=== PATIENT | female | born 1990 | race African-American/Black ===

== ENCOUNTER 2016-06-03 09:46 | Outpatient (CLI) | payer MEDICAID ==
[~2016-06-03] VITALS: Ht 162.6 cm; Wt 105.5 kg
[~2016-06-03 09:46] MED LIST: ADVAIR IH; ALBUTEROL SULFAT3 M3 IH; ALBUTEROL0.83 MG/ML IH; ATROVENT I0.2 MG/1 M IH; BACTRIM DS 8001 TAB PO; BIAXIN 500MG T500 MG PO; CEPHALEXIN250 M1 PO; CLEOCIN HCL300 MG PO; IBUPROFEN800 M1 PO; LORTAB 5/500 501 TAB PO; MOTRIN 600600 MG/TAB PO; NORCO 325 MG-51 TAB PO; PERCOCET 325 MG1 TA2 PO; PREDNISONE10 MG; PREDNISONE10 MG PO; PREDNISONE20 MG PO; PROAIR HFA0.09 MG/AC IH; PROVENTIL0.09 MG/A1 IH; PULMICORT R1 MG/2 ML IH; PULMICORT180 MCG/Ac IH; RT ADVAIR 228 DISKUS; RT ALBUTER2.5 MG/0.5 IH; SINGULAIR 110 MG/TAB; SINGULAIR 110 MG/TAB PO; SINGULAIR10 MG PO; THEO-DUR 2200 MG/TAB PO; TYLENOL 325MG325 MG PO; VENTOLIN0.09 MG IH; ZITHROMAX 250M250 MG PO; ZYRTEC 10MG10 MG PO
[2016-06-03 09:53] VITALS: BP 128/72; PULSE 91; TEMP 98.5
[2016-06-03] MEDS ORDERED: SINGULAIR 110 MG/TAB (10:14)
[2016-06-03 10:45] VITALS: BP 117/74; PULSE 82
== END 2016-06-03 10:57 | disposition home or self-care (01) ==
LOC: LDRO 09:46
DX: O32.1XX0 Maternal care for breech presentation, not applicable or unspecified (principal); Z3A.37 37 weeks gestation of pregnancy; Z87.891 Personal history of nicotine dependence

== ENCOUNTER 2016-06-29 18:52 | Inpatient (IN) | payer MEDICAID ==
[~2016-06-29] VITALS: Ht 162.6 cm; Wt 105.9 kg
[2016-06-30] VITALS (50 sets, daily range): BP systolic 106–141; BP diastolic 44–87; PULSE 63–102; TEMP 97.9–98.7
[2016-06-30 07:52] LABS: BASO % 0.4 % (0.0-2.0); EOS # 0.1 (0.0-0.7); EOS % 1.3 % (0-4.0); GRAN # 3.2 (1.4-6.5); GRAN % 57.3 % (42.2-75.2); LYMPH # 1.8 (1.2-3.4); MEAN CELL VOLUME 74 fl (80.0-100.0); MEAN CORPUSCULAR HGB CONC 34 g/dl (33.0-37.0); MEAN PLATELET VOLUME 10.8 fl (7.4-10.4); MONO # 0.4 (0.1-0.6); MONO % 7.8 % (1.7-9.3); PLATELET COUNT 228 K/mm3 (130-400); RED BLOOD COUNT 4.43 M/mm3 (4.10-5.30); REDCELL DISTRIBUTION WIDTH-CV 14.1 % (11.5-14.5); WHITE BLOOD COUNT 5.5 K/mm3 (4.8-10.8)
[2016-06-30 07:53] LABS: HEMATOCRIT 32.8 % (37.0-47.0); HEMOGLOBIN 11.1 g/dl (12.5-16.0); MEAN CORPUSCULAR HEMOGLOBIN 25 pg (27.0-31.0)
[2016-06-30] MEDS ORDERED: SINGULAIR 110 MG/TAB PO (08:17)
[2016-06-30] MEDS ORDERED: ZYRTEC 10MG10 MG PO (08:18)
[2016-07-01 02:00] VITALS: BP 124/73; PULSE 81; TEMP 98.7
[2016-07-01] MEDS ORDERED: IBU600 MG PO (07:38)
[2016-07-01 07:40] LABS: HEMATOCRIT 31.8 % (37.0-47.0); HEMOGLOBIN 10.6 g/dl (12.5-16.0)
[2016-07-01] MEDS ORDERED: PERCOCET 325 MG1 TA2 PO (07:40)
[2016-07-01 08:30] VITALS: BP 109/63; PULSE 81; TEMP 97.8
== END 2016-07-01 19:45 | disposition home or self-care (01) | DRG 775 ==
LOC: OB 18:52 → LDR 06-30 07:05 → OB 06-30 20:15
PROVIDERS: Obstetrics & Gynecology
PROC: 10E0XZZ Delivery of Products of Conception, External Approach (ICD-10-PCS; principal; 2016-06-30)
PROC: 3E033VJ Introduction of Other Hormone into Peripheral Vein, Percutaneous Approach (ICD-10-PCS; 2016-06-30)
DX: O48.0 Post-term pregnancy (principal); O99.02 Anemia complicating childbirth; D57.3 Sickle-cell trait; Z3A.41 41 weeks gestation of pregnancy; Z37.0 Single live birth
CPT/HCPCS: J2590; J2795; J7042; J7120

== ENCOUNTER 2017-02-23 13:38 | Emergency (ER) | payer MEDICAID ==
[~2017-02-23] VITALS: Ht 165.1 cm; Wt 96.8 kg
[~2017-02-23 13:38] MED LIST changes: +IBU600 MG PO
[2017-02-23 13:46] VITALS: BP 116/62; TEMP 98.2
[2017-02-23] MEDS ORDERED: PREDNISONE20 MG PO (14:45)
[2017-02-23 15:00] VITALS: PULSE 88
== END 2017-02-23 15:02 | disposition home or self-care (01) ==
LOC: COL.ER 13:38
DX: O99.512 Diseases of the respiratory system complicating pregnancy, second trimester (principal); J45.901 Unspecified asthma with (acute) exacerbation; Z87.891 Personal history of nicotine dependence; Z3A.18 18 weeks gestation of pregnancy
CPT/HCPCS: J7512

== ENCOUNTER 2017-05-09 11:37 | Outpatient (CLI) | payer MEDICAID ==
[~2017-05-09] VITALS: Ht 165.1 cm; Wt 99.3 kg
[2017-05-09 11:53] VITALS: BP 117/64; PULSE 87; TEMP 98
[2017-05-09 12:49] LABS: BASO % 0.6 % (0.0-2.0); EOS # 0.2 (0.0-0.7); EOS % 3.5 % (0-4.0); GRAN # 3.8 (1.4-6.5); GRAN % 70.6 % (42.2-75.2); LYMPH % 17.8 % (20.0-51.0); MEAN CELL VOLUME 80 fl (80.0-100.0); MEAN CORPUSCULAR HGB CONC 33 g/dl (33.0-37.0); MEAN PLATELET VOLUME 10.5 fl (7.4-10.4); MONO # 0.4 (0.1-0.6); MONO % 7.1 % (1.7-9.3); PLATELET COUNT 214 K/mm3 (130-400); RED BLOOD COUNT 3.91 M/mm3 (4.10-5.30); WHITE BLOOD COUNT 5.4 K/mm3 (4.8-10.8)
[2017-05-09 12:50] VITALS: BP 102/62; PULSE 85
[2017-05-09 12:50] LABS: HEMATOCRIT 31.1 % (37.0-47.0); HEMOGLOBIN 10.2 g/dl (12.5-16.0); MEAN CORPUSCULAR HEMOGLOBIN 26 pg (27.0-31.0)
[2017-05-09 12:58] LABS: ADJUSTED CALCIUM 9.4 mg/dL (8.4-10.2); ALBUMIN 3.2 gm/dL (3.5-5.0); BILIRUBIN,TOTAL 0.9 mg/dL (0.0-1.0); CALCIUM 8.8 mg/dL (8.4-10.2); CREATININE, serum 0.76 mg/dL (0.52-1.25); POTASSIUM 3.7 mmol/L (3.4-5.0); TOTAL PROTEIN 6.8 gm/dL (6.4-8.2)
[2017-05-09 13:20] VITALS: BP 107/56; PULSE 82
== END 2017-05-09 13:20 | disposition home or self-care (01) ==
LOC: LDRO 11:37
PROVIDERS: Obstetrics & Gynecology
DX: O99.613 Diseases of the digestive system complicating pregnancy, third trimester (principal); Z3A.29 29 weeks gestation of pregnancy

== ENCOUNTER 2017-07-22 15:43 | Outpatient (CLI) | payer MEDICAID ==
[~2017-07-22] VITALS: Ht 165.1 cm; Wt 101.4 kg
[2017-07-22 16:04] VITALS: BP 110/65; PULSE 108; TEMP 98.6
[2017-07-22 16:15] VITALS: BP 112/67; PULSE 90
[2017-07-22 17:00] VITALS: BP 118/71; PULSE 83
== END 2017-07-22 17:15 | disposition home or self-care (01) ==
LOC: LDRO 15:43 → LDR 15:45 → LDRO 17:15
DX: O62.9 Abnormality of forces of labor, unspecified (principal); Z3A.40 40 weeks gestation of pregnancy
CPT/HCPCS: OP

== ENCOUNTER 2017-07-30 06:25 | Inpatient (IN) | payer MEDICAID ==
[~2017-07-30] VITALS: Ht 165.1 cm; Wt 101.8 kg
[2017-07-30] VITALS (56 sets, daily range): BP systolic 94–1303; BP diastolic 54–90; PULSE 61–131; TEMP 97.5–98.4
[2017-07-30 08:12] LABS: BASO % 0.2 % (0.0-2.0); EOS # 0.1 (0.0-0.7); EOS % 2.2 % (0-4.0); GRAN # 3.4 (1.4-6.5); GRAN % 61.1 % (42.2-75.2); HEMOGLOBIN 9.8 g/dl (12.5-16.0); LYMPH # 1.5 (1.2-3.4); LYMPH % 27.3 % (20.0-51.0); MEAN CELL VOLUME 71 fl (80.0-100.0); MEAN CORPUSCULAR HEMOGLOBIN 23 pg (27.0-31.0); MEAN CORPUSCULAR HGB CONC 32 g/dl (33.0-37.0); MEAN PLATELET VOLUME 10.7 fl (7.4-10.4); MONO # 0.5 (0.1-0.6); MONO % 8.8 % (1.7-9.3); PLATELET COUNT 247 K/mm3 (130-400); RED BLOOD COUNT 4.35 M/mm3 (4.10-5.30); REDCELL DISTRIBUTION WIDTH-CV 14.9 % (11.5-14.5)
[2017-07-31 02:30] VITALS: BP 99/66; PULSE 75
[2017-07-31 06:00] VITALS: BP 105/53; PULSE 81
[2017-07-31 06:56] LABS: HEMATOCRIT 27.1 % (37.0-47.0); HEMOGLOBIN 8.6 g/dl (12.5-16.0)
[2017-07-31] MEDS ORDERED: PERCOCET 325 MG1 TA2 PO (09:48)
[2017-07-31] MEDS ORDERED: IBU600 MG PO (09:48)
[2017-07-31] MEDS ORDERED: FERRO-TIME325 MG PO (09:49)
[2017-07-31 16:26] VITALS: BP 116/61; PULSE 67; TEMP 98
[2017-07-31 19:30] VITALS: BP 115/72; PULSE 80; TEMP 98.2
== END 2017-07-31 20:50 | disposition home or self-care (01) | DRG 775 ==
LOC: LDR 06:25 → OB 06:47 → LDR 06:47 → OB 22:39
PROVIDERS: Obstetrics & Gynecology
PROC: 10E0XZZ Delivery of Products of Conception, External Approach (ICD-10-PCS; principal; 2017-07-30)
PROC: 3E033VJ Introduction of Other Hormone into Peripheral Vein, Percutaneous Approach (ICD-10-PCS; 2017-07-30)
DX: O48.0 Post-term pregnancy (principal); O99.02 Anemia complicating childbirth; D57.3 Sickle-cell trait; O66.0 Obstructed labor due to shoulder dystocia; O69.81X0 Labor and delivery complicated by cord around neck, without compression, not applicable or unspecified; Z3A.41 41 weeks gestation of pregnancy; Z37.0 Single live birth
CPT/HCPCS: J2590; J7120

== ENCOUNTER 2018-02-26 11:04 | Emergency (ER) | payer MEDICAID ==
[~2018-02-26] VITALS: Ht 165.1 cm; Wt 95.5 kg
[~2018-02-26 11:04] MED LIST changes: +FERRO-TIME325 MG PO
[2018-02-26 11:09] VITALS: BP 118/71; TEMP 98.6
[2018-02-26] MEDS ORDERED: PREDNISONE20 MG PO ×2 (11:16→14:02)
[2018-02-26] MEDS ORDERED: RT ALBUTER2.5 MG/0.5 IH (13:56)
[2018-02-26 13:59] VITALS: PULSE 108
== END 2018-02-26 14:01 | disposition home or self-care (01) ==
LOC: COL.ER 11:04
DX: J45.901 Unspecified asthma with (acute) exacerbation (principal); Z87.891 Personal history of nicotine dependence
CPT/HCPCS: J3475; J7512

== ENCOUNTER 2018-06-04 08:20 | Emergency (ER) | payer MEDICAID ==
[~2018-06-04] VITALS: Ht 165.1 cm; Wt 95.5 kg
[2018-06-04 08:26] VITALS: BP 113/72
[2018-06-04 09:11] LABS: BASO % 0.8 % (0.0-2.0); EOS # 0.1 (0.0-0.7); EOS % 2.8 % (0-4.0); GRAN # 2.6 (1.4-6.5); GRAN % 52.7 % (42.2-75.2); HEMATOCRIT 38.9 % (37.0-47.0); HEMOGLOBIN 12.6 g/dl (12.5-16.0); LYMPH # 1.8 (1.2-3.4); LYMPH % 35.4 % (20.0-51.0); MEAN CELL VOLUME 78 fl (80.0-100.0); MEAN CORPUSCULAR HEMOGLOBIN 25 pg (27.0-31.0); MEAN CORPUSCULAR HGB CONC 32 g/dl (33.0-37.0); MEAN PLATELET VOLUME 10.7 fl (7.4-10.4); MONO # 0.4 (0.1-0.6); MONO % 8.3 % (1.7-9.3); PLATELET COUNT 285 K/mm3 (130-400); REDCELL DISTRIBUTION WIDTH-CV 14.9 % (11.5-14.5)
[2018-06-04 09:24] LABS: ALANINE AMINOTRANSFERASE 15 U/L (9-52); ALBUMIN 3.9 gm/dL (3.5-5.0); ALKALINE PHOSPHATASE 78 U/L (50-136); ANION GAP 5 mmol/L (7-16); AST,SGOT 17 U/L (15-37); BILIRUBIN,TOTAL 0.7 mg/dL (0.0-1.0); BLOOD UREA NITROGEN 8 mg/dL (7-17); CARBON DIOXIDE 26 mmol/L (22-30); CHLORIDE 109 mmol/L (98-107); CREATININE, serum 0.84 mg/dL (0.52-1.25); GLUCOSE 96 mg/dL (74-106); POTASSIUM 4.3 mmol/L (3.4-5.0); SODIUM 140 mmol/L (137-145); TOTAL PROTEIN 7.4 gm/dL (6.4-8.2)
[2018-06-04 09:25] LABS: C-REACTIVE PROTEIN < 0.5 mg/dL (0.0-0.9)
[2018-06-04] MEDS ORDERED: VICODIN 5/300 PO (11:33)
[2018-06-04 11:50] LABS: COLLECTION METHOD CLEAN CATCH
[2018-06-04 11:56] LABS: PH 5 (5-8); SQUAMOUS EPITHELIAL 0-2 /hpf; URINE APPEARANCE Clear; URINE BACTERIA None Seen /hpf; URINE BILIRUBIN Negative (NEGATIVE); URINE BLOOD 3+ (NEGATIVE); URINE COLOR Yellow; URINE GLUCOSE Negative (NEGATIVE); URINE KETONE Negative (NEGATIVE); URINE LEUKOCYTE ESTERASE Negative (NEGATIVE); URINE NITRATE Negative (NEGATIVE); URINE PROTEIN(semi-quant) Negative (NEGATIVE); URINE RBC 20-50 /hpf; URINE UROBILINOGEN Negative (NEGATIVE)
[2018-06-04 12:19] VITALS: PULSE 82; TEMP 98.5
== END 2018-06-04 12:19 | disposition home or self-care (01) ==
LOC: COL.ER 08:20
PROVIDERS: Nurse Practitioner
DX: N83.202 Unspecified ovarian cyst, left side (principal); J45.909 Unspecified asthma, uncomplicated; Z98.51 Tubal ligation status

== ENCOUNTER 2018-07-01 11:12 | Emergency (ER) | payer MEDICAID ==
[~2018-07-01] VITALS: Ht 165.1 cm; Wt 97.7 kg
[~2018-07-01 11:12] MED LIST changes: +VICODIN 5/300 PO
[2018-07-01 11:22] VITALS: TEMP 97.8
[2018-07-01 15:21] LABS: COLLECTION METHOD CLEAN CATCH
[2018-07-01 15:27] LABS: PH 5 (5-8); SQUAMOUS EPITHELIAL 0-2 /hpf; URINE APPEARANCE Clear; URINE BACTERIA None Seen /hpf; URINE BILIRUBIN Negative (NEGATIVE); URINE BLOOD 1+ (NEGATIVE); URINE COLOR Yellow; URINE GLUCOSE Negative (NEGATIVE); URINE KETONE Negative (NEGATIVE); URINE LEUKOCYTE ESTERASE Negative (NEGATIVE); URINE NITRATE Negative (NEGATIVE); URINE PROTEIN(semi-quant) Negative (NEGATIVE); URINE RBC 0-2 /hpf; URINE UROBILINOGEN Negative (NEGATIVE)
[2018-07-01 15:54] LABS: BASO % 0.6 % (0.0-2.0); EOS # 0.2 (0.0-0.7); EOS % 2.6 % (0-4.0); GRAN # 3.6 (1.4-6.5); GRAN % 54.9 % (42.2-75.2); HEMATOCRIT 41.2 % (37.0-47.0); HEMOGLOBIN 13.6 g/dl (12.5-16.0); LYMPH # 2.2 (1.2-3.4); LYMPH % 33.7 % (20.0-51.0); MEAN CELL VOLUME 78 fl (80.0-100.0); MEAN CORPUSCULAR HEMOGLOBIN 26 pg (27.0-31.0); MEAN CORPUSCULAR HGB CONC 33 g/dl (33.0-37.0); MEAN PLATELET VOLUME 10.8 fl (7.4-10.4); MONO # 0.5 (0.1-0.6); MONO % 7.9 % (1.7-9.3); PLATELET COUNT 306 K/mm3 (130-400); RED BLOOD COUNT 5.31 M/mm3 (4.10-5.30); REDCELL DISTRIBUTION WIDTH-CV 14.5 % (11.5-14.5)
[2018-07-01 16:07] LABS: ALANINE AMINOTRANSFERASE 18 U/L (9-52); ALBUMIN 4.3 gm/dL (3.5-5.0); ALKALINE PHOSPHATASE 90 U/L (50-136); ANION GAP 7 mmol/L (7-16); AST,SGOT 20 U/L (15-37); BILIRUBIN,TOTAL 0.6 mg/dL (0.0-1.0); BLOOD UREA NITROGEN 9 mg/dL (7-17); C-REACTIVE PROTEIN < 0.5 mg/dL (0.0-0.9); CALCIUM 9.5 mg/dL (8.4-10.2); CARBON DIOXIDE 25 mmol/L (22-30); CHLORIDE 108 mmol/L (98-107); CREATININE, serum 0.77 mg/dL (0.52-1.25); GLUCOSE 72 mg/dL (74-106); LIPASE 41 U/L (23-300); SODIUM 139 mmol/L (137-145); TOTAL PROTEIN 8.2 gm/dL (6.4-8.2)
[2018-07-01 17:47] VITALS: BP 115/78; PULSE 78
== END 2018-07-01 17:49 | disposition home or self-care (01) ==
LOC: COL.ER 11:12
PROVIDERS: Emergency Medicine
DX: R10.32 Left lower quadrant pain (principal); J45.909 Unspecified asthma, uncomplicated; F17.210 Nicotine dependence, cigarettes, uncomplicated; Z98.51 Tubal ligation status
CPT/HCPCS: J2405; J3010; Q9967

== ENCOUNTER 2019-06-26 13:04 | Emergency (ER) | payer MEDICAID ==
[~2019-06-26] VITALS: Ht 165.1 cm; Wt 104.5 kg
[2019-06-26 13:37] VITALS: BP 122/62; TEMP 97.2
[2019-06-26] MEDS ORDERED: ZYRTEC 10MG10 MG PO (13:59)
[2019-06-26 15:45] VITALS: PULSE 91
== END 2019-06-26 15:45 | disposition home or self-care (01) ==
LOC: COL.ER 13:04
DX: S93.502A Unspecified sprain of left great toe, initial encounter (principal); J45.909 Unspecified asthma, uncomplicated; F17.210 Nicotine dependence, cigarettes, uncomplicated; Y04.0XXA Assault by unarmed brawl or fight, initial encounter

== ENCOUNTER 2019-09-23 14:41 | Emergency (ER) | payer MEDICAID ==
[~2019-09-23] VITALS: Ht 165.1 cm; Wt 113.6 kg
[2019-09-23 14:46] VITALS: TEMP 98.8
[2019-09-23] MEDS ORDERED: SINGULAIR 110 MG/TAB PO (14:57)
[2019-09-23] MEDS ORDERED: ALBUTEROL S0.4 MG/ML PO (14:58)
[2019-09-23 15:23] LABS: BASO % 0.4 % (0.0-2.0); EOS # 0.3 (0.0-0.7); EOS % 3.8 % (0-4.0); GRAN # 4.8 (1.4-6.5); GRAN % 63.4 % (42.2-75.2); HEMATOCRIT 40.5 % (37.0-47.0); HEMOGLOBIN 13.4 g/dl (12.5-16.0); LYMPH % 26.4 % (20.0-51.0); MEAN CELL VOLUME 81 fl (80.0-100.0); MEAN CORPUSCULAR HEMOGLOBIN 27 pg (27.0-31.0); MEAN CORPUSCULAR HGB CONC 33 g/dl (33.0-37.0); MEAN PLATELET VOLUME 10.2 fl (7.4-10.4); MONO # 0.4 (0.1-0.6); MONO % 5.7 % (1.7-9.3); PLATELET COUNT 299 K/mm3 (130-400); RED BLOOD COUNT 5.01 M/mm3 (4.10-5.30); REDCELL DISTRIBUTION WIDTH-CV 13.2 % (11.5-14.5)
[2019-09-23 15:31] LABS: ALBUMIN 4.1 gm/dL (3.5-5.0); BILIRUBIN,TOTAL 0.4 mg/dL (0.0-1.0); CALCIUM 9.4 mg/dL (8.4-10.2); CREATININE, serum 0.95 (0.52-1.25); POTASSIUM 3.9 mmol/L (3.4-5.0)
[2019-09-23] MEDS ORDERED: PREDNISONE10 MG PO (16:59)
[2019-09-23] MEDS ORDERED: FIORICET 325 MG1 TA1 PO ×3 (16:59→17:02)
[2019-09-23 17:10] VITALS: BP 92/63; PULSE 88
== END 2019-09-23 17:14 | disposition home or self-care (01) ==
LOC: COL.ER 14:41
PROVIDERS: Family Medicine
DX: R07.81 Pleurodynia (principal); R51 Headache; J45.909 Unspecified asthma, uncomplicated

== ENCOUNTER 2019-11-10 05:01 | Emergency (ER) | payer MEDICAID ==
[~2019-11-10] VITALS: Ht 165.1 cm; Wt 97.7 kg
[~2019-11-10 05:01] MED LIST changes: +ALBUTEROL S0.4 MG/ML PO; +FIORICET 325 MG1 TA1 PO
[2019-11-10] MEDS ORDERED: NORCO 325 MG-51 TAB PO (05:32)
[2019-11-10] MEDS ORDERED: BACTRIM DS 8001 TAB PO (05:32)
[2019-11-10 05:49] VITALS: BP 103/47; PULSE 78; TEMP 97.8
== END 2019-11-10 05:56 | disposition home or self-care (01) ==
LOC: COL.ER 05:01
DX: L05.01 Pilonidal cyst with abscess (principal); Z79.52 Long term (current) use of systemic steroids
CPT/HCPCS: J0696

== ENCOUNTER 2020-07-23 11:55 | Emergency (ER) | payer MEDICAID ==
[~2020-07-23] VITALS: Ht 165.1 cm; Wt 98.2 kg
[2020-07-23 11:59] VITALS: BP 100/68; TEMP 97.1
[2020-07-23] MEDS ORDERED: ZOFRAN ODT4 MG PO (13:05)
[2020-07-23] MEDS ORDERED: BACTRIM DS 8001 TAB PO (13:05)
[2020-07-23 13:17] VITALS: PULSE 99
== END 2020-07-23 13:17 | disposition home or self-care (01) ==
LOC: COL.ER 11:55
DX: L05.01 Pilonidal cyst with abscess (principal); J45.909 Unspecified asthma, uncomplicated; Z87.891 Personal history of nicotine dependence; Z79.51 Long term (current) use of inhaled steroids

== ENCOUNTER → 2024-03-14 | Outpatient (CLI) | payer OTHER ==
[~2024-03-14] MED LIST changes: +ATIVAN 1MG T1 MG/TAB PO; +ZOFRAN ODT4 MG PO
== END ==
LOC: MC.RAD 09:23
DX: N63.11 Unspecified lump in the right breast, upper outer quadrant (principal)